=== PATIENT | female | born 1985 | race Two or more races ===

== ENCOUNTER 2017-01-13 06:20 | Inpatient (IN) | payer MEDICAID ==
[2017-01-13] MEDS ORDERED: PUMP TUBING ONE (06:35)
[2017-01-13] MEDS ORDERED: OXYTOCIN IN NS 500 ML IV ONE (06:35)
[2017-01-13] MEDS ORDERED: LIDOCAINE Viscous 2% 15 ML UDCUP ONE (06:36)
[2017-01-13] MEDS ORDERED: MINERAL OIL 25 ML BOT ONE (06:36)
[2017-01-13] MEDS ORDERED: LIDOCAINE 1% (PRES FREE) 30 ML VIAL ONE (06:36)
[2017-01-13] MEDS ORDERED: OXYTOCIN 10 UNITS/ML VIAL ONE (06:36)
[2017-01-13] MEDS ORDERED: SODIUM CHLORIDE 0.9% FLUSH 10 ML ONE (06:43)
[2017-01-13] MEDS ORDERED: OXYTOCIN IN NS 334 ML IV PRN (06:59)
--- NOTE | 2017-01-13 07:12 | PDOC36 ---
Provider Note Subject: cc: Admission H&P HPI: 31 y.o. year old ENOC 01/15/2017, by Last Menstrual Period at 39w5d.Presents in active labor with advanced dilation. REVIEW OF SYSTEMS GENERAL: No fever or headache EYES: No double or blurry vision. CARDIOVASCULAR: No chest pain. RESPIRATORY: No severe shortness of breath or cough. GASTROINTESTINAL: No nausea or vomiting or right upper quadrant pain. PSYCHIATRIC: No anxiety or depression. PROBLEMS Patient Active Problem List Diagnosis Date Noted Normal 09/20/2016 Low vitamin D level 01/05/2016 Unspecified infectious and parasitic diseases 11/26/2012 OB HISTORY #: 1, Date: 08/13/99, Sex: Female, Weight: 3 kg (6 lb 9.8 oz), GA: 40w0d, Delivery: Vaginal, Spontaneous Delivery, Apgar1: None, Apgar5: None, Living: Yes , Comments: None #: 2, Date: 07/17/02, Sex: Female, Weight: 3 kg (6 lb 9.8 oz), GA: 40w0d, Delivery: Vaginal, Spontaneous Delivery, Apgar1: None, Apgar5: None, Living: Yes , Comments: None #: 3, Date: 08/04/07, Sex: Male, Weight: 2.722 kg (6 lb), GA: 41w0d, Delivery: Induction, Apgar1: None, Apgar5: None, Living: Yes, Comments: Induced labor, vaginal #: 4, Date: 09/18/10, Sex: None, Weight: None, GA: 6w0d, Delivery: Spontaneous , Apgar1: None, Apgar5: None, Living: Demise, Comments: None #: 5, Date: 01/17/13, Sex: Female, Weight: 3.6 kg (7 lb 15 oz), GA: 41w0d, Delivery: Vaginal, Spontaneous Delivery, Apgar1: 7, Apgar5: 9, Living: Yes, Comments: None #: 6, Date: 05/11/15, Sex: Female, Weight: 3.435 kg (7 lb 9.2 oz), GA: 39w2d, Delivery: Vaginal, Spontaneous Delivery, Apgar1: 9, Apgar5: 9, Living: Yes, Comments: elevated pressures with labor despite mag & IV labetatol, no HTN prior to labor #: 7, Current Dating Summary Working ENOC: 01/15/17 set by Haley Downing RN on 08/15/16 based on Last Menstrual Period on 04/10/16 Based On ENOC GA Dif Comments GA Cyc Lut BC Entered By Date Last Menstrual Period on 04/10/16 (Exact Date) 01/15/17 Working Haley Downing RN 08/15/16 Ultrasound on 09/06/16 01/17/17 -2d c/w lmp. girl. normal survey except unable to see face/nose. ant grade 1 placenta, no previa. normal fluid. 21w0d Kale Noe PA-C 09/20/16 Ultrasound on 01/08/17 01/27/17 -1w5d normal growth. vertex. normal PRACHI. female 37w2d Kale Noe PA-C 01/10/17 PSH No past surgical history SOC HX reports that she has never smoked. She has never used smokeless tobacco. She reports that she does not drink alcohol or use illicit drugs. ALL No Known Allergies MEDICATIONS Current outpatient prescriptions: Jojzoavi-Yik-Gr-FA ( VITAMINS) 0.8 MG tablet, Take 1 tablet by mouth daily., Disp: , Rfl: PHYSICAL EXAMINATION VITAL SIGNS: Afebrile, wnl. Estimated body mass index is 31.40 kg/(m^2) as calculated from the following: Height as of 09/20/16: 1.605 m (5' 3.19"). Weight as of 01/10/17: 80.9 kg (178 lb 5.6 oz). Total weight gain is 12.8 kg (28 lb 3.5 oz) FHT: Complete GENERAL: No distress GASTROINTESTINAL: Gravid no fundal tenderness LABS & STUDIES O+ Antibody- Rubella Immune Hep B- HIV- GC/Chlamydia- Trep- Hgb 12 GBS neg ASSESSMENT 31 y.o. year old ENOC 01/15/2017, by Last Menstrual Period at 39w5d who presents in active marcus and advanced dilation. PLAN Delivered precipitously. Uncomplicated. GBS neg RH +
[2017-01-13 07:13] VITALS: BMI 30.9
--- NOTE | 2017-01-13 07:14 | PCMDEL ---
Delivery Note - Labor 1st stage (hr/min):: 2 hours 29 min 2nd stage (hr/min):: 18 min 3rd stage (hr/min):: 3 min Total (hr/min):: 3 hours Pushed (hr/min):: 10 min - Delivery Delivery (Date): 01/13/17 Delivery (Time): 06:47 Infant Gender: Female Presentation: Cephalic Position: OA Umbilical Cord: Nuchal Cord Delayed Cord Clamping:: 2-3 min 1 Minute Total: 9 5 Minute Total: 9 Placenta:: Intact EBL:: 400 Comments:: Presented in active labor with advanced dilation. Pushed effectively to deliver via without complications. Vigorous placed on mom's chest. Delayed cord clamping x 2 min. Active third stage with IV pitocin and fundal massage.
[2017-01-13 07:18] LABS: HEMATOCRIT 36.5 % (37.0-47.0); HEMOGLOBIN 12.6 gm/l (12.0-16.0); MEAN CELL VOLUME 86.5 fl (81.0-99.0); MEAN CORPUSCULAR HEMOGLOBIN 29.9 pg (27.0-31.0); MEAN CORPUSCULAR HGB CONC 34.5 g/dl (33.0-37.0); RED CELL DISTRIBUTION WIDTH 12.2 % (11.5-14.5)
[2017-01-13] MEDS ORDERED: LANOLIN 50 APPLIC/7G TUBE TP PRN (07:23)
[2017-01-13] MEDS ORDERED: HYDROCODONE/ACETAMINOPHEN 5/325MG TABLET PO PRN (07:23)
[2017-01-13] MEDS ORDERED: DOCUSATE SODIUM 100 MG CAPSULE PO PRN (07:23)
[2017-01-13] MEDS ORDERED: BENZOCAINE/MENTHOL 60 APPLIC/BOT TP PRN (07:23)
[2017-01-13] MEDS ORDERED: MAGNESIUM HYDROXIDE 30 ML UDCUP PO PRN (07:23)
[2017-01-13] MEDS ORDERED: LACTATED RINGERS 1,000 ML ONE (07:50)
[2017-01-13] MEDS ORDERED: IV START KIT ONE (07:50)
[2017-01-13] MEDS: IBUPROFEN 800 MG TABLET PO PRN ×2 (07:56→22:14)
[2017-01-14 06:17] LABS: HEMATOCRIT 28.4 % (37.0-47.0)
[2017-01-14] MEDS: IBUPROFEN 800 MG TABLET PO PRN (08:27)
[2017-01-14 08:34] VITALS: BP 123/76
--- NOTE | 2017-01-14 12:03 | PDOC39B ---
Hospital Course: ADMIT DATE: 01/13/17 DISCHARGE DATE: 01/14/17 ADMISSION DIAGNOSES: term IUP, active labor, grand multip. PROCEDURES: none HISTORY OF PRESENT ILLNESS: 31 year old G7 T5 L5 at 39 weeks 5 days presenting with active labor. HOSPITAL COURSE: The patient presented in active labor and delivered rapidly. By day of discharge the patient is ambulating, eating, voiding, and passing flatus without difficulty. Pain is controlled and lochia is appropriate. She is breast feeding. - Physical Exam Vital Signs: Temp Pulse Resp BP Pulse Ox 98.2 F 82 18 123/76 01/14/17 08:15 01/14/17 08:15 01/14/17 08:15 01/14/17 08:15 General: Afebrile Psych/Mental Status: Mood/Affect Appropriate Lungs: Clear to Auscultation Bilaterally Cardiovascular: Regular Rate and Rhythm, No Murmur Breast: Soft, Skin intact Fundus: Firm, Midline, At Umbilicus Extremities: No Edema Skin: Warm, Dry, No Rash - Discharge Plan Condition: Good Disposition: Home Prescriptions: Docusate Sodium [Colace] 100 mg PO DAILY #30 cap Ibuprofen [IBUPROFEN 600 MG TABLET (SHF)] 1 tab PO Q6H PRN #30 tablet PRN Reason: Pain Pnv No.122/Iron/Folic Acid [ Multi Tablet] 1 each PO DAILY #90 tablet Follow-Up: Kale Noe PA-C [Primary Care Provider] - In 6 weeks
== END 2017-01-14 13:15 | disposition home or self-care (01) | DRG 775 ==
LOC: FBC 06:20 → FBCOUT 06:20 → FBC 06:31 → FBCOUT 06:31
PROVIDERS: ADMIT Family Medicine; ATTEND Family Medicine
PROC: 10E0XZZ Delivery of Products of Conception, External Approach (ICD-10-PCS; principal; 2017-01-13)
DX: O62.3 Precipitate labor (principal); O09.43 Supervision of pregnancy with grand multiparity, third trimester; O69.81X0 Labor and delivery complicated by cord around neck, without compression, not applicable or unspecified; Z37.0 Single live birth; Z3A.39 39 weeks gestation of pregnancy